=== PATIENT | female | born 1995 | race Caucasian/White ===

== ENCOUNTER → 2024-09-13 13:12 | Outpatient (REF) | payer OTHER, SELFPAY | LOC: HWRAD 13:12 | PROVIDERS: ATTENDING PHYSICIAN Obstetrics & Gynecology; FAMILY PHYSICIAN Physician Assistant Medical | DX: N83.201 Unspecified ovarian cyst, right side (principal) | CPT/HCPCS: 76856 ==

== ENCOUNTER → 2024-10-12 13:07 | Outpatient (REF) | payer OTHER, SELFPAY | LOC: HWRAD 13:07 | PROVIDERS: ATTENDING PHYSICIAN Obstetrics & Gynecology; FAMILY PHYSICIAN Physician Assistant Medical | DX: N83.291 Other ovarian cyst, right side (principal) | CPT/HCPCS: 76856 ==

== ENCOUNTER → 2024-12-18 08:18 | Outpatient (REF) | payer OTHER, SELFPAY | LOC: PNTC 08:18 | PROVIDERS: ATTENDING PHYSICIAN Obstetrics & Gynecology | DX: O35.8XX0 Maternal care for other (suspected) fetal abnormality and damage, not applicable or unspecified (principal) | CPT/HCPCS: 36415; 76816; 86850; 86900; 86901; 96372; J2790 ==

== ENCOUNTER 2025-03-09 05:39 | Inpatient (IN) | payer OTHER, SELFPAY ==
[2025-03-09 05:54] VITALS: BP 123/80; BMI 24.9
[2025-03-09] MEDS: LR 1000 IV ×2 (06:05→08:09)
[2025-03-09] MEDS: PENICILLIN 110 UNITS IV (06:15)
[2025-03-09 06:17] LABS: % Basophils 0.5 % (0-2); % Eosinophils 0.2 % (0-6); % Immature Granulocytes 0.2 % (0-0.5); % Lymphocytes 21.8 % (20.5-51.1); % Monocytes 8.1 % (1.7-9.3); % Neutrophils 69.2 % (42.2-75.2); Absolute Lymphocytes 1.8 10^3/uL (1.2-3.4); Absolute Monocytes 0.7 10^3/uL (0.1-0.6); Absolute Neutrophils 5.8 10^3/uL (1.4-6.5); Hematocrit 39.2 % (37.0-47.0); Hemoglobin 14.2 g/dL (12.0-16.0); Mean Corp Hgb Conc. 36.2 g/dL (33.0-37.0); Mean Corpuscular Hgb 32.3 pg (27.0-31.0); Mean Corpuscular Volume 89.1 fL (81.0-99.0); Mean Platelet Volume 9.3 fL (7.4-10.4); Nucleated Red Blood Cells % 0 %; Platelet Count 246 10^3/uL (130-400); Red Cell Dist. Width 12.1 % (11.5-14.5); White Blood Cell Count 8.4 10^3/uL (4.8-10.8)
[2025-03-09] MEDS: FENTANYL/BUPIVACAINE 100 EPIDURAL (08:09)
[2025-03-09] MEDS: SUBLIMAZE 100 MCG EPIDURAL (08:09)
[2025-03-09] MEDS: PENICILLIN 55 UNITS IV ×2 (10:00→14:07)
[2025-03-09] MEDS: PITOCIN 30 UNITS/NSS 500 ML IV (14:49)
[2025-03-10] MEDS: MOTRIN 600 MG PO ×3 (01:28→20:33)
[2025-03-10] MEDS: TYLENOL 650 MG PO ×4 (02:36→20:33)
[2025-03-10 05:43] LABS: Hematocrit 34.7 % (37.0-47.0); Hemoglobin 12.3 g/dL (12.0-16.0)
[2025-03-10] MEDS: PRENATAL PLUS 1 TABLET PO (08:23)
[2025-03-10] MEDS: SENOKOT-S 1 TABLET PO (20:42)
[2025-03-11] MEDS: TYLENOL 650 MG PO ×2 (03:45→09:44)
[2025-03-11] MEDS: MOTRIN 600 MG PO ×2 (03:45→09:44)
[2025-03-11] MEDS: PRENATAL PLUS 1 TABLET PO (07:52)
== END 2025-03-11 11:35 | disposition home or self-care (01) | DRG 807 ==
LOC: LDRP 05:39
PROVIDERS: Obstetrics & Gynecology; ADMITTING PHYSICIAN Obstetrics & Gynecology; FAMILY PHYSICIAN Physician Assistant Medical
PROC: 10E0XZZ Delivery of Products of Conception, External Approach (ICD-10-PCS; 2025-03-09)
PROC: 0KQM0ZZ Repair Perineum Muscle, Open Approach (ICD-10-PCS; 2025-03-09)
DX: O70.1 Second degree perineal laceration during delivery (principal); Z37.0 Single live birth; O69.81X0 Labor and delivery complicated by cord around neck, without compression, not applicable or unspecified; O77.0 Labor and delivery complicated by meconium in amniotic fluid; Z3A.40 40 weeks gestation of pregnancy
CPT/HCPCS: 88307; 85014; 85018; 85025; 86780; 86850; 86900; 86901